=== PATIENT | male | born 1985 | race Caucasian/White ===

== ENCOUNTER 2017-02-26 18:45 | Emergency (ER) | payer OTHER ==
--- NOTE | 2017-02-26 19:18 | ED CLINICAL REPORT ---
Clinical Report - Physicians/Mid Levels [facility] [address] [place] [address] 02/26/2017 18:45 Patient: VANE MAK Time Seen: 18:51. Arrived- By private vehicle. Historian- patient. HISTORY OF PRESENT ILLNESS Chief Complaint: LESION and TENDER AREA. This started today about 1 week ago and is still present. It was gradual in onset and has been waxing/waning. It is described as painful. It has been located on the right foot. No cause has been identified. No recent medication or insect bite. (His SO thinks the lesion may be from his boots rubbing on his foot / ankle. He cannot remember a specific injury / foreign body). Similar symptoms previously: None. Recent medical care: Not recently seen/assessed. REVIEW OF SYSTEMS No fever, sore throat, cough, difficulty breathing or hoarseness. No headache, chest pain, abdominal pain, diarrhea or difficulty with urination. No vomiting. PAST HISTORY See nurses notes. Tetanus immunization status is up-to-date. Chronic back pain. Surgeries: No history of previous surgery. Additional Surgeries: no known surgeries. Medications: None. Allergies: No Known Drug Allergy. SOCIAL HISTORY Never smoker. History of chewing tobacco use. No alcohol use or drug use. ADDITIONAL NOTES The nursing notes have been reviewed. PHYSICAL EXAM Vital Signs: 02/26/2017 18:51 BP: 116/68. HR: 74. RR: 18. O2 saturation: 99%. Temp: 98.4 F. Pain level now: 6/10. Appearance: Alert. Oriented X3. No acute distress. Eyes: Conjunctivae and eyelids normal. ENT: Nose normal. Neck: Neck supple. CVS: Normal heart rate and rhythm. Heart sounds normal. Respiratory: No respiratory distress. Breath sounds normal. Chest nontender. Abdomen: Nontender. Skin: Skin warm and dry. Single small tender indurated area with fluctuance to right ankle and right foot (anterior, medial aspect with small lesion). No pointing, drainage or cellulitis. Extremities: No upper extremity edema. No calf tenderness. Right foot: mild erythema and swelling and moderate tenderness located in the proximal aspect of the foot. Neurovascular intact distally. No ecchymosis, puncture wound, foreign body or deformity. Extremities exhibit normal ROM. Compartment soft. Neuro: Oriented X 3. No motor deficit. No sensory deficit. LABS, X-RAYS, AND EKG Rt Foot X-ray: No fracture. Normal alignment. No bony lesion, air in the soft tissue or foreign body. Soft tissues normal. Joint spaces normal. Views: AP, lateral and oblique. Technique: good. The X-rays were interpreted contemporaneously by me. The X-rays were discussed with the radiologist (via PACS report). Bedside Tests: Glucose normal - 72 (performed at bedside). Pulse Oximetry: 02/26/2017 18:51 O2 saturation: 99%. (FIO2 - room air). Interpretation: normal. PROGRESS AND PROCEDURES Incision & Drainage of Abscess: Time-out completed immediately before the procedure. The abscess is located in the right ankle and foot. The risks of the procedure, benefits and alternatives were explained. Consent was obtained. Local anesthesia provided using 0.50% Marcaine no epi. Skin cleansed with Betadine. The abscess was incised with a #11 surgical blade. A small amount of pus was drained. Cavity was irrigated with saline and packed with gauze. Sample obtained for cultures and gram stain. A dressing was applied. Estimated blood loss: 2 mL. Course of Care: Bactrim DS 1 tab PO. Keflex 500 mg PO given. Patient is stable. Physical exam findings are improved. Symptoms better. No systemic symptoms. Only small amount of pus drainage with I&D. I will cover broadly with strep and MRSA coverage until cultures return. May be mostly inflammatory reaction. He will need close out pt follow up. Patient/family counseled. Old ED records reviewed. Disposition: Discharged. Condition: good and stable and improved. CLINICAL IMPRESSION Single superficial abscess to the left foot with incision and drainage. INSTRUCTIONS Protect wound and keep wound area clean. (You may leave the packing in place for 2 days). Change dressing daily. Apply neosporin twice daily. Do not work for three days. Drink plenty of fluids. Warnings: Further evaluation is necessary in order to conduct further tests. It is very important to follow up with a physician. CONTROLLED SUBSTANCE WARNINGS. GENERAL WARNINGS: Return or contact your physician immediately if your condition worsens or changes unexpectedly, if not improving as expected, or if other problems arise. Prescription Medications: Hydrocodone/APAP 5mg / 325mg: take 1 orally every 8 hours as needed for pain. Dispense five (5). No refill. Bactrim DS 800 mg / 160 mg: take 1 tablet orally every 12 hours for 7 days. No refill. Substitution is permissible. Keflex 500 mg: take 1 capsule orally every 6 hours for 7 days. No refill. Substitution is permissible. OTC Medications: Acetaminophen (available over the counter): take according to label instructions. Motrin (available over the counter): take according to label instructions. Follow-up with: Cricket Tanner DPM, Podiatry, , [address] [place] [address] [address], [place] [address]; [facility], , , [facility], [address] [place] [address] [address], [place] [address] Follow up in about two days. Call for the next available appointment. Follow-up with: Elmer Cason DPM, Podiatry, , [facility], [address] [place] [address], [address], [place] [address] Follow up in about two days. Call for the next available appointment. (Electronically signed by Ravi Gibson DO 02/26/2017 22:09)
--- NOTE | 2017-02-26 19:18 | ED CLINICAL REPORT ---
Clinical Report - Physicians/Mid Levels [facility] [address] [place] [address] 02/26/2017 18:45 Patient: VANE MAK Time Seen: 18:51. Arrived- By private vehicle. Historian- patient. HISTORY OF PRESENT ILLNESS Chief Complaint: LESION and TENDER AREA. This started today about 1 week ago and is still present. It was gradual in onset and has been waxing/waning. It is described as painful. It has been located on the right foot. No cause has been identified. No recent medication or insect bite. (His SO thinks the lesion may be from his boots rubbing on his foot / ankle. He cannot remember a specific injury / foreign body). Similar symptoms previously: None. Recent medical care: Not recently seen/assessed. REVIEW OF SYSTEMS No fever, sore throat, cough, difficulty breathing or hoarseness. No headache, chest pain, abdominal pain, diarrhea or difficulty with urination. No vomiting. PAST HISTORY See nurses notes. Tetanus immunization status is up-to-date. Chronic back pain. Surgeries: No history of previous surgery. Additional Surgeries: no known surgeries. Medications: None. Allergies: No Known Drug Allergy. SOCIAL HISTORY Never smoker. History of chewing tobacco use. No alcohol use or drug use. ADDITIONAL NOTES The nursing notes have been reviewed. PHYSICAL EXAM Vital Signs: 02/26/2017 18:51 BP: 116/68. HR: 74. RR: 18. O2 saturation: 99%. Temp: 98.4 F. Pain level now: 6/10. Appearance: Alert. Oriented X3. No acute distress. Eyes: Conjunctivae and eyelids normal. ENT: Nose normal. Neck: Neck supple. CVS: Normal heart rate and rhythm. Heart sounds normal. Respiratory: No respiratory distress. Breath sounds normal. Chest nontender. Abdomen: Nontender. Skin: Skin warm and dry. Single small tender indurated area with fluctuance to right ankle and right foot (anterior, medial aspect with small lesion). No pointing, drainage or cellulitis. Extremities: No upper extremity edema. No calf tenderness. Right foot: mild erythema and swelling and moderate tenderness located in the proximal aspect of the foot. Neurovascular intact distally. No ecchymosis, puncture wound, foreign body or deformity. Extremities exhibit normal ROM. Compartment soft. Neuro: Oriented X 3. No motor deficit. No sensory deficit. LABS, X-RAYS, AND EKG Rt Foot X-ray: No fracture. Normal alignment. No bony lesion, air in the soft tissue or foreign body. Soft tissues normal. Joint spaces normal. Views: AP, lateral and oblique. Technique: good. The X-rays were interpreted contemporaneously by me. The X-rays were discussed with the radiologist (via PACS report). Bedside Tests: Glucose normal - 72 (performed at bedside). Pulse Oximetry: 02/26/2017 18:51 O2 saturation: 99%. (FIO2 - room air). Interpretation: normal. PROGRESS AND PROCEDURES Incision & Drainage of Abscess: Time-out completed immediately before the procedure. The abscess is located in the right ankle and foot. The risks of the procedure, benefits and alternatives were explained. Consent was obtained. Local anesthesia provided using 0.50% Marcaine no epi. Skin cleansed with Betadine. The abscess was incised with a #11 surgical blade. A small amount of pus was drained. Cavity was irrigated with saline and packed with gauze. Sample obtained for cultures and gram stain. A dressing was applied. Estimated blood loss: 2 mL. Course of Care: Bactrim DS 1 tab PO. Keflex 500 mg PO given. Patient is stable. Physical exam findings are improved. Symptoms better. No systemic symptoms. Only small amount of pus drainage with I&D. I will cover broadly with strep and MRSA coverage until cultures return. May be mostly inflammatory reaction. He will need close out pt follow up. Patient/family counseled. Old ED records reviewed. Disposition: Discharged. Condition: good and stable and improved. CLINICAL IMPRESSION Single superficial abscess to the left foot with incision and drainage. INSTRUCTIONS Protect wound and keep wound area clean. (You may leave the packing in place for 2 days). Change dressing daily. Apply neosporin twice daily. Do not work for three days. Drink plenty of fluids. Warnings: Further evaluation is necessary in order to conduct further tests. It is very important to follow up with a physician. CONTROLLED SUBSTANCE WARNINGS. GENERAL WARNINGS: Return or contact your physician immediately if your condition worsens or changes unexpectedly, if not improving as expected, or if other problems arise. Prescription Medications: Hydrocodone/APAP 5mg / 325mg: take 1 orally every 8 hours as needed for pain. Dispense five (5). No refill. Bactrim DS 800 mg / 160 mg: take 1 tablet orally every 12 hours for 7 days. No refill. Substitution is permissible. Keflex 500 mg: take 1 capsule orally every 6 hours for 7 days. No refill. Substitution is permissible. OTC Medications: Acetaminophen (available over the counter): take according to label instructions. Motrin (available over the counter): take according to label instructions. Follow-up with: Cricket Tanner DPM, Podiatry, , [address] [place] [address] [address], [place] [address]; [facility], , , [facility], [address] [place] [address] [address], [place] [address] Follow up in about two days. Call for the next available appointment. Follow-up with: Elmer Cason DPM, Podiatry, , [facility], [address] [place] [address], [address], [place] [address] Follow up in about two days. Call for the next available appointment. (Electronically signed by Ravi Gibson DO 02/26/2017 22:09)
--- NOTE | 2017-02-26 19:18 | ED ORDER SUMMARY ---
..... Patient: VANE MAK OrderSheet [facility] VisitID: [id number] [place] [address] 31y, M Registration Date/Time: 02/26/2017 ORDER SHEET Weight: 79.3 kg (stated) Allergies: No Known Drug Allergy GENERAL ORDERS: Foot 3V Right (infection - no known fb) Urgent (18:52 02/26/2017 [facility]) (Ack 18:54 PWeiler ER Tech1) (18:58 JBoardley R.N.) POC Glucose (18:53 02/26/2017 [facility]) (Ack 18:54 JBoardley R.N.) (18:58 JBoardley R.N.) Dress Wounds (bacitrancin and guaze) (19:17 02/26/2017 [facility]) (Ack 19:21 DDavis R.N.) (19:34 DDavis R.N.) MEDICATION ORDERS: Keflex PO 500 mg (NOW) (18:54 02/26/2017 [facility] (Ack 18:54 JBoardley R.N.) (Cancelled: Other18:55 [facility] P.A.-[facility]) Bupivacaine Injection 0.5 % (soln) (NOW, place at bedside) (19:01 02/26/2017 [facility]) (Ack 19:06 JBoardley R.N.) (19:07 JBoardley R.N.) Bactrim DS PO (Tablet 800-160 mg) 1 tab (NOW) (19:23 02/26/2017 [facility]) (19:37 DDavis R.N.) Keflex PO 500 mg (NOW) (19:24 02/26/2017 [facility]) (19:37 DDavis R.N.) IV FLUIDS: ORDER SHEET NOTES: [Electronically signed by Ismael Degroot R.N. (19:41 02/26/2017)] [Electronically signed by Ravi Gibson DO (22:09 02/26/2017)] [Electronically locked/signed by Ismael Degroot R.N. (19:41 02/26/2017)]
--- NOTE | 2017-02-26 19:18 | ED ORDER SUMMARY ---
..... Patient: VANE MAK OrderSheet [facility] VisitID: [id number] [place] [address] 31y, M Registration Date/Time: 02/26/2017 ORDER SHEET Weight: 79.3 kg (stated) Allergies: No Known Drug Allergy GENERAL ORDERS: Foot 3V Right (infection - no known fb) Urgent (18:52 02/26/2017 [facility]) (Ack 18:54 PWeiler ER Tech1) (18:58 JBoardley R.N.) POC Glucose (18:53 02/26/2017 [facility]) (Ack 18:54 JBoardley R.N.) (18:58 JBoardley R.N.) Dress Wounds (bacitrancin and guaze) (19:17 02/26/2017 [facility]) (Ack 19:21 DDavis R.N.) (19:34 DDavis R.N.) MEDICATION ORDERS: Keflex PO 500 mg (NOW) (18:54 02/26/2017 [facility]) (Ack 18:54 JBoardley R.N.) (Cancelled: Other18:55 [facility] P.A[facility]) Bupivacaine Injection 0.5 % (soln) (NOW, place at bedside) (19:01 02/26/2017 [facility]) (Ack 19:06 JBoardley R.N.) (19:07 JBoardley R.N.) Bactrim DS PO (Tablet 800-160 mg) 1 tab (NOW) (19:23 02/26/2017 [facility]) (19:37 DDavis R.N.) Keflex PO 500 mg (NOW) (19:24 02/26/2017 [facility]) (19:37 DDavis R.N.) IV FLUIDS: ORDER SHEET NOTES: [Electronically signed by Ismael Degroot R.N. (19:41 02/26/2017)] [Electronically signed by Ravi Gibson DO (22:09 02/26/2017)] [Electronically locked/signed by Ismael Degroot R.N. (19:41 02/26/2017)]
--- NOTE | 2017-02-26 19:18 | ED NURSING NOTES ---
Clinical Report - Nurses [facility] [place] [address] [place] [address] 02/26/2017 18:45 [id number] Triage time 18:51. Acuity: LEVEL 4. Chief Complaint: RIGHT LOWER EXTREMITY PAIN. Location of symptoms- (Right foot pain, redness). 18:53 02/26/17. 18:53 02/26/17. Alert. No acute distress. SEPSIS SCREEN: Sepsis Screen. Negative (no infection suspected/documented). MANE COMA SCORE: Mane Coma Scale: 15- eyes open spontaneously (4); best verbal response- oriented x 4 (5); best motor response- obeys commands (6). --18:54 Ulysses Ashton R.N. 18:51 02/26/17. BP: 116/68. HR: 74. RR: 18. O2 saturation: 99% on room air. Temp: 98.4 F (oral). Pain level now: 04/19. --18:54 Ulysses Ashton R.N. Weight: 79.3 kg stated. Height/Length: 68 inches Per Patient. BMI: 26.6. --18:51 Ulysses Ashton R.N. Medications None. --18:53 Ulysses Ashton R.N. Allergies No Known Drug Allergy. --18:53 Ulysses Ashton R.N. History Arrived by private vehicle. Historian: patient. Accompanied by family. Primary physician (NONE). 18:53 02/26/17. No injury occurred. This occurred (1 week ago). He has had trouble walking. Treatment VICE PRESIDENT OF CONSULTING SERVICES: None. PAST MEDICAL HX: Tetanus status: up-to-date. Immunizations: up-to-date. SOCIAL HX: Never smoker. History of chewing tobacco use. No alcohol use or drug use. No infectious disease exposure. ABUSE ASSESSMENT: No report of abuse. FALL RISK ASSESSMENT: Fall risk assessment completed. No fall risk identified. NUTRITIONAL RISK ASSESSMENT: The nutritional risk assessment revealed no deficiencies. FUNCTIONAL ASSESSMENT: Functional assessment: no impairments noted. LEARNING NEEDS ASSESSMENT: The learning needs assessment revealed no barriers. SKIN INTEGRITY ASSESSMENT: Skin integrity risk assessment completed. No skin integrity risk identified. --18:54 Ulysses Ashton R.N. PROBLEMS: Lumbar Strain. Tetanus Status. Immunizations. --18:53 Ulysses Ashton R.N. ADDITIONAL SURGERIES: no known surgeries. Assessment 18:53 02/26/17. --18:54 Ulysses Ashton R.N. Interventions 18:53 02/26/17. 18:53 02/26/17. ID and allergy band on patient. To treatment room. --18:54 Ulysses Ashton R.N. PHYSICAL ASSESSMENT 18:54 02/26/17. Ambulatory to room. GENERAL / NEURO / PSYCH: Oriented X 4. Alert. Appears in no acute distress. EXTREMITIES: Neuro-vascular status intact to the extremity. Right foot: tenderness and erythema. SKIN: Skin is warm and dry. --18:54 Ulysses Ashton R.N. NURSING PROGRESS NOTES 18:54 02/26/17. The plan of care for this patient has been created. Extremity elevated. Reassurance given. Call light placed in reach. Side rails up x 2. Bed placed in lowest position. Brakes of bed on. --18:54 Ulysses Ashton R.N. 18:54 02/26/17. Patient ready for evaluation- chart flagged and notification provided. --18:54 Ulysses Ashton R.N. 18:58 02/26/17. ( x-ray completed at bedside). --18:58 Ulysses Ashton R.N. 19:02 02/26/2017 Bupivacaine Injection 0.5 % given. Allergies verified and confirmed 5 rights. ( will adminster). --19:07 Ulysses Ashton R.N. 19:07 02/26/17. ( Blood Sugar 72). --19:07 Ulysses Ashton R.N. 19:08 02/26/17. Care transferred and report given. --19:08 Ulysses Ashton R.N. ( Report received from Ulysses Pulido RN.). --19:10 Ismael Degroot R.N. 19:37 02/26/2017 Bactrim DS (Sulfamethoxazole-TMP DS) PO Tablets 1 tab given. Allergies verified and confirmed 5 rights. --19:37 Ismael Degroot R.N. 19:37 02/26/2017 Keflex (Cephalexin) PO 500 mg given. Allergies verified and confirmed 5 rights. --19:37 Ismael Degroot R.N. ( 1932: Dressing and bacitracin applied to patient's abscess site (right anterior foot).). --19:38 Ismael Degroot R.N. DISPOSITION / DISCHARGE Departure time: 19:39. Condition at departure: stable. No learning barriers present. Discharge instructions provided and reviewed with the patient. Reviewed warnings. Reviewed medication(s) side effects, precautions, dosing and course information. Prescription(s) given to the patient. Treatments reviewed. Reviewed referrals for followup. Work note given. Patient and seed specialist verbalized understanding. Written instructions provided in Zambian. The patient was discharged home and accompanied by seed specialist. He left the Emergency Department ambulatory and via private vehicle. Case Finisher driving. --19:40 Ismael Degroot R.N. 19:40 02/26/17. BP: 113/77. HR: 79. RR: 18. O2 saturation: 98% on room air. Pain level now: 0/10. --19:40 Ismael Degroot R.N. Locked/Released at 02/26/2017 19:41 by Ismael Degroot R.N.
--- NOTE | 2017-02-26 19:18 | ED NURSING NOTES ---
Clinical Report - Nurses [facility] [place] [address] 02/26/2017 18:45 [id number] Triage time 18:51. Acuity: LEVEL 4. Chief Complaint: RIGHT LOWER EXTREMITY PAIN. Location of symptoms- (Right foot pain, redness). 18:53 02/26/17. 18:53 02/26/17. Alert. No acute distress. SEPSIS SCREEN: Sepsis Screen. Negative (no infection suspected/documented). MANE COMA SCORE: Mane Coma Scale: 15- eyes open spontaneously (4); best verbal response- oriented x 4 (5); best motor response- obeys commands (6). --18:54 Ulysses Ashton R.N. 18:51 02/26/17. BP: 116/68. HR: 74. RR: 18. O2 saturation: 99% on room air. Temp: 98.4 F (oral). Pain level now: 04/19. --18:54 Ulysses Ashton R.N. Weight: 79.3 kg stated. Height/Length: 68 inches Per Patient. BMI: 26.6. --18:51 Ulysses Ashton R.N. Medications None. --18:53 Ulysses Ashton R.N. Allergies No Known Drug Allergy. --18:53 Ulysses Ashton R.N. History Arrived by private vehicle. Historian: patient. Accompanied by family. Primary physician (NONE). 18:53 02/26/17. No injury occurred. This occurred (1 week ago). He has had trouble walking. Treatment MANAGED CARE DIRECTOR: None. PAST MEDICAL HX: Tetanus status: up-to-date. Immunizations: up-to-date. SOCIAL HX: Never smoker. History of chewing tobacco use. No alcohol use or drug use. No infectious disease exposure. ABUSE ASSESSMENT: No report of abuse. FALL RISK ASSESSMENT: Fall risk assessment completed. No fall risk identified. NUTRITIONAL RISK ASSESSMENT: The nutritional risk assessment revealed no deficiencies. FUNCTIONAL ASSESSMENT: Functional assessment: no impairments noted. LEARNING NEEDS ASSESSMENT: The learning needs assessment revealed no barriers. SKIN INTEGRITY ASSESSMENT: Skin integrity risk assessment completed. No skin integrity risk identified. --18:54 Ulysses Ashton R.N. PROBLEMS: Lumbar Strain. Tetanus Status. Immunizations. --18:53 Ulysses Ashton R.N. ADDITIONAL SURGERIES: no known surgeries. Assessment 18:53 02/26/17. --18:54 Ulysses Ashton R.N. Interventions 18:53 02/26/17. 18:53 02/26/17. ID and allergy band on patient. To treatment room. --18:54 Ulysses Ashton R.N. PHYSICAL ASSESSMENT 18:54 02/26/17. Ambulatory to room. GENERAL / NEURO / PSYCH: Oriented X 4. Alert. Appears in no acute distress. EXTREMITIES: Neuro-vascular status intact to the extremity. Right foot: tenderness and erythema. SKIN: Skin is warm and dry. --18:54 Ulysses Ashton R.N. NURSING PROGRESS NOTES 18:54 02/26/17. The plan of care for this patient has been created. Extremity elevated. Reassurance given. Call light placed in reach. Side rails up x 2. Bed placed in lowest position. Brakes of bed on. --18:54 Ulysses Ashton R.N. 18:54 02/26/17. Patient ready for evaluation- chart flagged and notification provided. --18:54 Ulysses Ashton R.N. 18:58 02/26/17. ( x-ray completed at bedside). --18:58 Ulysses Ashton R.N. 19:02 02/26/2017 Bupivacaine Injection 0.5 % given. Allergies verified and confirmed 5 rights. ( will adminster). --19:07 Ulysses Ashton R.N. 19:07 02/26/17. ( Blood Sugar 72). --19:07 Ulysses Ashton R.N. 19:08 02/26/17. Care transferred and report given. --19:08 Ulysses Ashton R.N. ( Report received from Ulysses Pulido RN.). --19:10 Ismael Degroot R.N. 19:37 02/26/2017 Bactrim DS (Sulfamethoxazole-TMP DS) PO Tablets 1 tab given. Allergies verified and confirmed 5 rights. --19:37 Ismael Degroot R.N. 19:37 02/26/2017 Keflex (Cephalexin) PO 500 mg given. Allergies verified and confirmed 5 rights. --19:37 Ismael Degroot R.N. ( 1932: Dressing and bacitracin applied to patient's abscess site (right anterior foot).). --19:38 Ismael Degroot R.N. DISPOSITION / DISCHARGE Departure time: 19:39. Condition at departure: stable. No learning barriers present. Discharge instructions provided and reviewed with the patient. Reviewed warnings. Reviewed medication(s) side effects, precautions, dosing and course information. Prescription(s) given to the patient. Treatments reviewed. Reviewed referrals for followup. Work note given. Patient and rental car ferry driver verbalized understanding. Written instructions provided in Dominican. The patient was discharged home and accompanied by rental car ferry driver. He left the Emergency Department ambulatory and via private vehicle. Plastic Roller driving. --19:40 Ismael Degroot R.N. 19:40 02/26/17. BP: 113/77. HR: 79. RR: 18. O2 saturation: 98% on room air. Pain level now: 0/10. --19:40 Ismael Degroot R.N. Locked/Released at 02/26/2017 19:41 by Ismael Degroot R.N.
--- NOTE | 2017-02-26 19:21 | DIAGNOSTIC IMAGING REPORT ---
PROCEDURE: XR FOOT 3 VIEWS - RIGHT INDICATION: FOREIGN BODY TECHNIQUE: Three views. COMPARISON: None. FINDINGS: There is a skin marker along the anteromedial aspect of the ankle but no evidence of radiopaque foreign body or subcutaneous air. Bones and joint spaces are normal. IMPRESSION: 1. Normal right foot.
--- NOTE | 2017-02-26 22:09 | ED MED RECONCILIATION SUMMARY ---
Patient: VANE MAK Medication Reconciliation Report [facility] VisitID: [id number] [address] [place] [address] 31y, M Registration Date/Time: 02/26/2017 Weight: 79.3 kg Height/Length: 68 in. BMI: 26.6 ALLERGIES: No Known Drug Allergy The patient's Home Medications are listed below: NONE. The source(s) of the original Home Medication information: Not obtained. The following Medications were given to the patient in the Emergency Department: Bupivacaine [Injection] Injection 0.5 %, administered: 02/26/2017 7:02:00 PM Bactrim DS [PO] PO 1 tab, administered: 02/26/2017 7:37:00 PM Keflex [PO] PO 500 mg, administered: 02/26/2017 7:37:00 PM The following Medications were prescribed to the patient: Acetaminophen (available over the counter): take according to label instructions. -- Ravi Gibson DO Motrin (available over the counter): take according to label instructions. -- aRvi Gibson DO Hydrocodone/APAP 5mg / 325mg: take 1 orally every 8 hours as needed for pain. Dispense five (5). No refill. -- Ravi Gibson DO Bactrim DS 800 mg / 160 mg: take 1 tablet orally every 12 hours for 7 days. No refill. Substitution is permissible. -- Ravi Gibson DO Keflex 500 mg: take 1 capsule orally every 6 hours for 7 days. No refill. Substitution is permissible. -- Ravi Gibson DO
--- NOTE | 2017-02-26 22:09 | ED MAR SUMMARY ---
..... Medication Administration Record [facility] [address] [place] [address] Patient: VANE MAK Visit ID: [id number] 31y, M Weight: 79.3 kg Height/Length: 68 in BMI: 26.6 ALLERGIES: No Known Drug Allergy Given 19:02 02/26/2017 Ulysses Ashton RMaria C Medication Administered: BUPIVACAINE [INJECTION], Dose: 0.5 % Injection. Medication Ordered: Bupivacaine Injection 0.5 % (soln) (NOW, place at bedside). Given 19:37 02/26/2017 Ismael Degroot R.N. Medication Administered: BACTRIM DS [PO] (SULFAMETHOXAZOLE-TMP DS), Dose: 1 tab Tablets PO. Medication Ordered: Bactrim DS PO (Tablet 800-160 mg) 1 tab (NOW). Given 19:37 02/26/2017 Ismael Degroot R.N. Medication Administered: KEFLEX [PO] (CEPHALEXIN), Dose: 500 mg PO. Medication Ordered: Keflex PO 500 mg (NOW).
--- NOTE | 2017-02-26 22:09 | ED MED RECONCILIATION SUMMARY ---
Patient: VANE MAK Medication Reconciliation Report [facility] VisitID: [id number] [address] [place] [address] 31y, M Registration Date/Time: 02/26/2017 Weight: 79.3 kg Height/Length: 68 in. BMI: 26.6 ALLERGIES: No Known Drug Allergy The patient's Home Medications are listed below: NONE. The source(s) of the original Home Medication information: Not obtained. The following Medications were given to the patient in the Emergency Department: Bupivacaine [Injection] Injection 0.5 %, administered: 02/26/2017 7:02:00 PM Bactrim DS [PO] PO 1 tab, administered: 02/26/2017 7:37:00 PM Keflex [PO] PO 500 mg, administered: 02/26/2017 7:37:00 PM The following Medications were prescribed to the patient: Acetaminophen (available over the counter): take according to label instructions. -- Ravi Gibson DO Motrin (available over the counter): take according to label instructions. -- Ravi Gibson DO Hydrocodone/APAP 5mg / 325mg: take 1 orally every 8 hours as needed for pain. Dispense five (5). No refill. -- Ravi Gibson DO Bactrim DS 800 mg / 160 mg: take 1 tablet orally every 12 hours for 7 days. No refill. Substitution is permissible. -- Ravi Gibson DO Keflex 500 mg: take 1 capsule orally every 6 hours for 7 days. No refill. Substitution is permissible. -- Ravi Gibson DO
--- NOTE | 2017-02-26 22:09 | ED MAR SUMMARY ---
..... Medication Administration Record [facility] [address] [place] [address] Patient: VANE MAK Visit ID: [id number] 31y, M Weight: 79.3 kg Height/Length: 68 in BMI: 26.6 ALLERGIES: No Known Drug Allergy Given 19:02 02/26/2017 Ulysses Ashton RMaria C Medication Administered: BUPIVACAINE [INJECTION], Dose: 0.5 % Injection. Medication Ordered: Bupivacaine Injection 0.5 % (soln) (NOW, place at bedside). Given 19:37 02/26/2017 Ismael Degroot R.N. Medication Administered: BACTRIM DS [PO] (SULFAMETHOXAZOLE-TMP DS), Dose: 1 tab Tablets PO. Medication Ordered: Bactrim DS PO (Tablet 800-160 mg) 1 tab (NOW). Given 19:37 02/26/2017 Ismael Degroot R.N. Medication Administered: KEFLEX [PO] (CEPHALEXIN), Dose: 500 mg PO. Medication Ordered: Keflex PO 500 mg (NOW).
--- NOTE | 2017-02-26 22:09 | ED DISCHARGE INSTRUCTIONS ---
Patient: VANE MAK General Instructions [facility] VisitID: [id number] [place] [address] 31y, M Registration Date/Time: 02/26/2017 Single superficial abscess to the left foot with incision and drainage. INSTRUCTIONS Protect wound and keep wound area clean. (You may leave the packing in place for 2 days). Change dressing daily. Apply neosporin twice daily. Do not work for three days. Drink plenty of fluids. Warnings: Further evaluation is necessary in order to conduct further tests. It is very important to follow up with a physician. CONTROLLED SUBSTANCE WARNINGS. GENERAL WARNINGS: Return or contact your physician immediately if your condition worsens or changes unexpectedly, if not improving as expected, or if other problems arise. Prescription Medications: Hydrocodone/APAP 5mg / 325mg: take 1 orally every 8 hours as needed for pain. Dispense five (5). No refill. Bactrim DS 800 mg / 160 mg: take 1 tablet orally every 12 hours for 7 days. No refill. Substitution is permissible. Keflex 500 mg: take 1 capsule orally every 6 hours for 7 days. No refill. Substitution is permissible. OTC Medications: Acetaminophen (available over the counter): take according to label instructions. Motrin (available over the counter): take according to label instructions. Follow-up with: Cricket Tanner DPM, Podiatry, , [address] [place] [address] [address], [place] [address]; [facility], , , [facility], [address] [place] [address] [address] [address] Follow up in about two days. Call for the next available appointment. Follow-up with: Elmer Cason DPM, Podiatry, , [facility], [address] [place] [address], [address] [address] Follow up in about two days. Call for the next available appointment. ADDITIONAL INFORMATION Abscess [Incision & Drainage] An abscess (sometimes called a boil) occurs when bacteria get trapped under the skin and begin to grow. Pus forms inside the abscess as the body responds to the bacteria. An abscess can occur with an insect bite, ingrown hair, blocked oil gland, pimple, cyst, or puncture wound. Treatment of your abscess has required an incision to drain the pus. If the abscess pocket was large, a gauze packing may have been inserted. This will need to be removed and possibly replaced on your next visit. Antibiotics are not required in the treatment of a simple abscess, unless the infection is spreading into the skin around the wound (known as cellulitis). Healing of the wound will take about one to two weeks depending on the size of the abscess. Healthy tissue will grow from the bottom and sides of the opening until it seals over. Home Care: The wound may drain for the first two days. Cover the wound with a clean dry dressing. If the dressing becomes soaked with blood or pus, change it. If a gauze packing was placed inside the abscess cavity, you may be advised to remove it yourself. You may do this in the shower. Once the packing is removed, you should wash the area in the shower or bath 3 to 4 times a day, until the skin opening has closed. If you were prescribed antibiotics, take them as directed until they are all gone. You may use acetaminophen (Tylenol) or ibuprofen (Motrin, Advil) to control pain, unless another pain medicine was prescribed. [ NOTE: If you have liver disease or ever had a stomach ulcer, talk with your doctor before using these medicines.] Follow Up with your doctor as advised by our staff. If a gauze packing was inserted in your wound, it should be removed in 1-2 days. Check your wound every day for the signs of worsening infection listed below. Get Prompt Medical Attention if any of the following occur: Increasing redness or swelling Red streaks in the skin leading away from the wound Increasing local pain or swelling Continued pus draining from the wound two days after treatment Fever of 100.4F (38C) or higher, or as directed by your healthcare provider Bandage Change If the bandage becomes wet or dirty, replace it. Otherwise, leave it in place for the first 24 hours. Then once a day: After removing the bandage, wash the area with soap and water. Use a wet cotton swab to loosen and remove any blood or crust that forms on the wound. After cleaning, apply a thin layer of antibiotic ointment or cream. Reapply the bandage. You may shower as usual after the first 24 hours. If the bandage is on an arm or leg, cover it with a plastic bag rubber banded at both ends before showering. No tub baths or swimming until the bandage is removed and the wound healed (at least 7 days). Hydrocodone Bitartrate, Acetaminophen Oral tablet What is this medicine? ACETAMINOPHEN; HYDROCODONE (a set a JOHNSON pina fen; guerrero droe KOE done) is a pain reliever. It is used to treat mild to moderate pain. How should I use this medicine? Take this medicine by mouth. Swallow it with a full glass of water. Follow the directions on the prescription label. If the medicine upsets your stomach, take the medicine with food or milk. Do not take more than you are told to take. Talk to your veneer sorter regarding the use of this medicine in children. This medicine is not approved for use in children. What side effects may I notice from receiving this medicine? Side effects that you should report to your doctor or health social worker palliative care as soon as possible: allergic reactions like skin rash, itching or hives, swelling of the face, lips, or tongue breathing problems confusion feeling faint or lightheaded, falls stomach pain yellowing of the eyes or skin Side effects that usually do not require medical attention (report to your doctor or health social worker palliative care if they continue or are bothersome): nausea, vomiting stomach upset What may interact with this medicine? alcohol antihistamines isoniazid medicines for depression, anxiety, or psychotic disturbances medicines for sleep muscle relaxants naltrexone narcotic medicines (opiates) for pain phenobarbital ritonavir tramadol What if I miss a dose? If you miss a dose, take it as soon as you can. If it is almost time for your next dose, take only that dose. Do not take double or extra doses. Where should I keep my medicine? Keep out of the reach of children. This medicine can be abused. Keep your medicine in a safe place to protect it from theft. Do not share this medicine with anyone. Selling or giving away this medicine is dangerous and against the law. Store at room temperature between 15 and 30 degrees C (59 and 86 degrees F). Protect from light. Keep container tightly closed. Throw away any unused medicine after the expiration date. Discard unused medicine and used packaging carefully. Pets and children can be harmed if they find used or lost packages. What should I tell my health care provider before I take this medicine? They need to know if you have any of these conditions: brain tumor Crohn's disease, inflammatory bowel disease, or ulcerative colitis drink more than 3 alcohol-containing drinks per day drug abuse or addiction head injury heart or circulation problems kidney disease or problems going to the bathroom liver disease lung disease, asthma, or breathing problems an unusual or allergic reaction to acetaminophen, hydrocodone, other opioid analgesics, other medicines, foods, dyes, or preservatives or trying to get breast-feeding What should I watch for while using this medicine? Tell your doctor or health social worker palliative care if your pain does not go away, if it gets worse, or if you have new or a different type of pain. You may develop tolerance to the medicine. Tolerance means that you will need a higher dose of the medicine for pain relief. Tolerance is normal and is expected if you take the medicine for a long time. Do not suddenly stop taking your medicine because you may develop a severe reaction. Your body becomes used to the medicine. This does NOT mean you are addicted. Addiction is a behavior related to getting and using a drug for a non-medical reason. If you have pain, you have a medical reason to take pain medicine. Your doctor will tell you how much medicine to take. If your doctor wants you to stop the medicine, the dose will be slowly lowered over time to avoid any side effects. You may get drowsy or dizzy when you first start taking the medicine or change doses. Do not drive, use machinery, or do anything that may be dangerous until you know how the medicine affects you. Stand or sit up slowly. There are different types of narcotic medicines (opiates) for pain. If you take more than one type at the same time, you may have more side effects. Give your health care provider a list of all medicines you use. Your doctor will tell you how much medicine to take. Do not take more medicine than directed. Call emergency for help if you have problems breathing. The medicine will cause constipation. Try to have a bowel movement at least every 2 to 3 days. If you do not have a bowel movement for 3 days, call your doctor or health social worker palliative care. Too much acetaminophen can be very dangerous. Do not take Tylenol (acetaminophen) or medicines that contain acetaminophen with this medicine. Many non-prescription medicines contain acetaminophen. Always read the labels carefully. Sulfamethoxazole, Trimethoprim Oral tablet What is this medicine? SULFAMETHOXAZOLE; TRIMETHOPRIM or SMX-TMP (suhl fuh meth OK elza zohl; trye METH oh prim) is a combination of a sulfonamide antibiotic and a second antibiotic, trimethoprim. It is used to treat or prevent certain kinds of bacterial infections. It will not work for colds, flu, or other viral infections. How should I use this medicine? Take this medicine by mouth with a full glass of water. Follow the directions on the prescription label. Take your medicine at regular intervals. Do not take it more often than directed. Do not skip doses or stop your medicine early. Talk to your veneer sorter regarding the use of this medicine in children. Special care may be needed. This medicine has been used in children as young as 2 months of age. What side effects may I notice from receiving this medicine? Side effects that you should report to your doctor or health social worker palliative care as soon as possible: allergic reactions like skin rash or hives, swelling of the face, lips, or tongue breathing problems fever or chills, sore throat irregular heartbeat, chest pain joint or muscle pain pain or difficulty passing urine red pinpoint spots on skin redness, blistering, peeling or loosening of the skin, including inside the mouth unusual bleeding or bruising unusually weak or tired yellowing of the eyes or skin Side effects that usually do not require medical attention (report to your doctor or health social worker palliative care if they continue or are bothersome): diarrhea dizziness headache loss of appetite nausea, vomiting nervousness What may interact with this medicine? Do not take this medicine with any of the following medications: aminobenzoate potassium dofetilide metronidazole This medicine may also interact with the following medications: ADRIANA inhibitors like benazepril, enalapril, lisinopril, and ramipril cyclosporine digoxin diuretics indomethacin medicines for diabetes methenamine methotrexate phenytoin potassium supplements pyrimethamine sulfinpyrazone tricyclic antidepressants warfarin What if I miss a dose? If you miss a dose, take it as soon as you can. If it is almost time for your next dose, take only that dose. Do not take double or extra doses. Where should I keep my medicine? Keep out of the reach of children. Store at room temperature between 20 to 25 degrees C (68 to 77 degrees F). Protect from light. Throw away any unused medicine after the expiration date. What should I tell my health care provider before I take this medicine? They need to know if you have any of these conditions: anemia asthma being treated with anticonvulsants if you frequently drink alcohol containing drinks kidney disease liver disease low level of folic acid or [id number] dehydrogenase poor nutrition or malabsorption porphyria severe allergies thyroid disorder an unusual or allergic reaction to sulfamethoxazole, trimethoprim, sulfa drugs, other medicines, foods, dyes, or preservatives or trying to get breast-feeding What should I watch for while using this medicine? Tell your doctor or health social worker palliative care if your symptoms do not improve. Drink several glasses of water a day to reduce the risk of kidney problems. Do not treat diarrhea with over the counter products. Contact your doctor if you have diarrhea that lasts more than 2 days or if it is severe and watery. This medicine can make you more sensitive to the sun. Keep out of the sun. If you cannot avoid being in the sun, wear protective clothing and use a sunscreen. Do not use sun lamps or tanning beds/booths. Cephalexin Monohydrate Oral tablet What is this medicine? CEPHALEXIN (sef a LOLLY in) is a cephalosporin antibiotic. It is used to treat certain kinds of bacterial infections It will not work for colds, flu, or other viral infections. How should I use this medicine? Take this medicine by mouth with a full glass of water. Follow the directions on the prescription label. This medicine can be taken with or without food. Take your medicine at regular intervals. Do not take your medicine more often than directed. Take all of your medicine as directed even if you think you are better. Do not skip doses or stop your medicine early. Talk to your veneer sorter regarding the use of this medicine in children. While this drug may be prescribed for selected conditions, precautions do apply. What side effects may I notice from receiving this medicine? Side effects that you should report to your doctor or health social worker palliative care as soon as possible: allergic reactions like skin rash, itching or hives, swelling of the face, lips, or tongue breathing problems pain or trouble passing urine redness, blistering, peeling or loosening of the skin, including inside the mouth severe or watery diarrhea unusually weak or tired yellowing of the eyes, skin Side effects that usually do not require medical attention (report to your doctor or health social worker palliative care if they continue or are bothersome): gas or heartburn genital or anal irritation headache joint or muscle pain nausea, vomiting What may interact with this medicine? probenecid some other antibiotics What if I miss a dose? If you miss a dose, take it as soon as you can. If it is almost time for your next dose, take only that dose. Do not take double or extra doses. There should be at least 4 to 6 hours between doses. Where should I keep my medicine? Keep out of the reach of children. Store at room temperature between 59 and 86 degrees F (15 and 30 degrees C). Throw away any unused medicine after the expiration date. What should I tell my health care provider before I take this medicine? They need to know if you have any of these conditions: kidney disease stomach or intestine problems, especially colitis an unusual or allergic reaction to cephalexin, other cephalosporins, penicillins, other antibiotics, medicines, foods, dyes or preservatives or trying to get breast-feeding What should I watch for while using this medicine? Tell your doctor or health social worker palliative care if your symptoms do not begin to improve in a few days. Do not treat diarrhea with over the counter products. Contact your doctor if you have diarrhea that lasts more than 2 days or if it is severe and watery. If you have diabetes, you may get a false-positive result for sugar in your urine. Check with your doctor or health social worker palliative care. Acetaminophen Oral tablet What is this medicine? ACETAMINOPHEN (a set a JOHNSON pina fen) is a pain reliever. It is used to treat mild pain and fever. How should I use this medicine? Take this medicine by mouth with a glass of water. Follow the directions on the package or prescription label. Take your medicine at regular intervals. Do not take your medicine more often than directed. Talk to your veneer sorter regarding the use of this medicine in children. While this drug may be prescribed for children as young as 6 years of age for selected conditions, precautions do apply. What side effects may I notice from receiving this medicine? Side effects that you should report to your doctor or health social worker palliative care as soon as possible: allergic reactions like skin rash, itching or hives, swelling of the face, lips, or tongue breathing problems fever or sore throat redness, blistering, peeling or loosening of the skin, including inside the mouth trouble passing urine or change in the amount of urine unusual bleeding or bruising unusually weak or tired yellowing of the eyes or skin Side effects that usually do not require medical attention (report to your doctor or health social worker palliative care if they continue or are bothersome): headache nausea, stomach upset What may interact with this medicine? alcohol imatinib isoniazid other medicines with acetaminophen What if I miss a dose? If you miss a dose, take it as soon as you can. If it is almost time for your next dose, take only that dose. Do not take double or extra doses. Where should I keep my medicine? Keep out of reach of children. Store at room temperature between 20 and 25 degrees C (68 and 77 degrees F). Protect from moisture and heat. Throw away any unused medicine after the expiration date. What should I tell my health care provider before I take this medicine? They need to know if you have any of these conditions: if you frequently drink alcohol containing drinks liver disease an unusual or allergic reaction to acetaminophen, other medicines, foods, dyes or preservatives or trying to get breast-feeding What should I watch for while using this medicine? Tell your doctor or health social worker palliative care if the pain lasts more than 10 days (5 days for children), if it gets worse, or if there is a new or different kind of pain. Also, check with your doctor if a fever lasts for more than 3 days. Do not take other medicines that contain acetaminophen with this medicine. Always read labels carefully. If you have questions, ask your doctor or pharmacist. If you take too much acetaminophen get medical help right away. Too much acetaminophen can be very dangerous and cause liver damage. Even if you do not have symptoms, it is important to get help right away. Ibuprofen Oral tablet What is this medicine? IBUPROFEN (eye BYOO proe fen) is a non-steroidal anti-inflammatory drug (NSAID). It is used for dental pain, fever, headaches or migraines, osteoarthritis, rheumatoid arthritis, or painful monthly periods. It can also relieve minor aches and pains caused by a cold, flu, or sore throat. How should I use this medicine? Take this medicine by mouth with a glass of water. Follow the directions on the prescription label. Take this medicine with food if your stomach gets upset. Try to not lie down for at least 10 minutes after you take the medicine. Take your medicine at regular intervals. Do not take your medicine more often than directed. A special MedGuide will be given to you by the pharmacist with each prescription and refill. Be sure to read this information carefully each time. Talk to your veneer sorter regarding the use of this medicine in children. Special care may be needed. What side effects may I notice from receiving this medicine? Side effects that you should report to your doctor or health social worker palliative care as soon as possible: allergic reactions like skin rash, itching or hives, swelling of the face, lips, or tongue black or bloody stools, blood in the urine or in vomit breathing problems changes in vision chest pain general ill feeling or flu-like symptoms nausea or vomiting redness, blistering, peeling or loosening of the skin, including inside the mouth slurred speech or weakness on one side of the body stomach pain unexplained weight gain or swelling unusually weak or tired yellowing of eyes or skin Side effects that usually do not require medical attention (report to your doctor or health social worker palliative care if they continue or are bothersome): constipation or diarrhea dizziness gas or heartburn stomach upset What may interact with this medicine? Do not take this medicine with any of the following medications: cidofovir ketorolac methotrexate pemetrexed This medicine may also interact with the following medications: alcohol aspirin diuretics lithium other drugs for inflammation like prednisone warfarin What if I miss a dose? If you miss a dose, take it as soon as you can. If it is almost time for your next dose, take only that dose. Do not take double or extra doses. Where should I keep my medicine? Keep out of the reach of children. Store at room temperature between 15 and 30 degrees C (59 and 86 degrees F). Keep container tightly closed. Throw away any unused medicine after the expiration date. What should I tell my health care provider before I take this medicine? They need to know if you have any of these conditions: asthma cigarette smoker drink more than 3 alcohol containing drinks a day heart disease or circulation problems such as heart failure or leg edema (fluid retention) high blood pressure kidney disease liver disease stomach bleeding or ulcers an unusual or allergic reaction to ibuprofen, aspirin, other NSAIDS, other medicines, foods, dyes, or preservatives or trying to get breast-feeding What should I watch for while using this medicine? Tell your doctor or healthcare professional if your symptoms do not start to get better or if they get worse. This medicine does not prevent heart attack or stroke. In fact, this medicine may increase the chance of a heart attack or stroke. The chance may increase with longer use of this medicine and in people who have heart disease. If you take aspirin to prevent heart attack or stroke, talk with your doctor or health social worker palliative care. Do not take other medicines that contain aspirin, ibuprofen, or naproxen with this medicine. Side effects such as stomach upset, nausea, or ulcers may be more likely to occur. Many medicines available without a prescription should not be taken with this medicine. This medicine can cause ulcers and bleeding in the stomach and intestines at any time during treatment. Ulcers and bleeding can happen without warning symptoms and can cause . To reduce your risk, do not smoke cigarettes or drink alcohol while you are taking this medicine. You may get drowsy or dizzy. Do not drive, use machinery, or do anything that needs mental alertness until you know how this medicine affects you. Do not stand or sit up quickly, especially if you are an older patient. This reduces the risk of dizzy or fainting spells. This medicine can cause you to bleed more easily. Try to avoid damage to your teeth and gums when you brush or floss your teeth. You have been given the following additional information: Abscess, Incision And Drainage Dressing Change Hydrocodone Bitartrate, Acetaminophen Oral tablet Sulfamethoxazole, Trimethoprim Oral tablet Cephalexin Monohydrate Oral tablet Acetaminophen Oral tablet Ibuprofen Oral tablet Do not work for three days. (Electronically signed by Ravi Gibson DO 02/26/2017 22:09)
--- NOTE | 2017-02-26 22:09 | ED DISCHARGE INSTRUCTIONS ---
Patient: VANE MAK General Instructions [facility] VisitID: [id number] [place] [address] 31y, M Registration Date/Time: 02/26/2017 Single superficial abscess to the left foot with incision and drainage. INSTRUCTIONS Protect wound and keep wound area clean. (You may leave the packing in place for 2 days). Change dressing daily. Apply neosporin twice daily. Do not work for three days. Drink plenty of fluids. Warnings: Further evaluation is necessary in order to conduct further tests. It is very important to follow up with a physician. CONTROLLED SUBSTANCE WARNINGS. GENERAL WARNINGS: Return or contact your physician immediately if your condition worsens or changes unexpectedly, if not improving as expected, or if other problems arise. Prescription Medications: Hydrocodone/APAP 5mg / 325mg: take 1 orally every 8 hours as needed for pain. Dispense five (5). No refill. Bactrim DS 800 mg / 160 mg: take 1 tablet orally every 12 hours for 7 days. No refill. Substitution is permissible. Keflex 500 mg: take 1 capsule orally every 6 hours for 7 days. No refill. Substitution is permissible. OTC Medications: Acetaminophen (available over the counter): take according to label instructions. Motrin (available over the counter): take according to label instructions. Follow-up with: Cricket Tanner DPM, Podiatry, , [address] [place] [address] [address], [place] [address]; [facility], , , [facility], [address] [place] [address] [address] [address] Follow up in about two days. Call for the next available appointment. Follow-up with: Elmer Cason DPM, Podiatry, , [facility], [address] [place] [address], [address] [address] Follow up in about two days. Call for the next available appointment. ADDITIONAL INFORMATION Abscess [Incision & Drainage] An abscess (sometimes called a boil) occurs when bacteria get trapped under the skin and begin to grow. Pus forms inside the abscess as the body responds to the bacteria. An abscess can occur with an insect bite, ingrown hair, blocked oil gland, pimple, cyst, or puncture wound. Treatment of your abscess has required an incision to drain the pus. If the abscess pocket was large, a gauze packing may have been inserted. This will need to be removed and possibly replaced on your next visit. Antibiotics are not required in the treatment of a simple abscess, unless the infection is spreading into the skin around the wound (known as cellulitis). Healing of the wound will take about one to two weeks depending on the size of the abscess. Healthy tissue will grow from the bottom and sides of the opening until it seals over. Home Care: The wound may drain for the first two days. Cover the wound with a clean dry dressing. If the dressing becomes soaked with blood or pus, change it. If a gauze packing was placed inside the abscess cavity, you may be advised to remove it yourself. You may do this in the shower. Once the packing is removed, you should wash the area in the shower or bath 3 to 4 times a day, until the skin opening has closed. If you were prescribed antibiotics, take them as directed until they are all gone. You may use acetaminophen (Tylenol) or ibuprofen (Motrin, Advil) to control pain, unless another pain medicine was prescribed. [ NOTE: If you have liver disease or ever had a stomach ulcer, talk with your doctor before using these medicines.] Follow Up with your doctor as advised by our staff. If a gauze packing was inserted in your wound, it should be removed in 1-2 days. Check your wound every day for the signs of worsening infection listed below. Get Prompt Medical Attention if any of the following occur: Increasing redness or swelling Red streaks in the skin leading away from the wound Increasing local pain or swelling Continued pus draining from the wound two days after treatment Fever of 100.4F (38C) or higher, or as directed by your healthcare provider Bandage Change If the bandage becomes wet or dirty, replace it. Otherwise, leave it in place for the first 24 hours. Then once a day: After removing the bandage, wash the area with soap and water. Use a wet cotton swab to loosen and remove any blood or crust that forms on the wound. After cleaning, apply a thin layer of antibiotic ointment or cream. Reapply the bandage. You may shower as usual after the first 24 hours. If the bandage is on an arm or leg, cover it with a plastic bag rubber banded at both ends before showering. No tub baths or swimming until the bandage is removed and the wound healed (at least 7 days). Hydrocodone Bitartrate, Acetaminophen Oral tablet What is this medicine? ACETAMINOPHEN; HYDROCODONE (a set a JOHNSON pina fen; guerreor droe KOE done) is a pain reliever. It is used to treat mild to moderate pain. How should I use this medicine? Take this medicine by mouth. Swallow it with a full glass of water. Follow the directions on the prescription label. If the medicine upsets your stomach, take the medicine with food or milk. Do not take more than you are told to take. Talk to your director of finance regarding the use of this medicine in children. This medicine is not approved for use in children. What side effects may I notice from receiving this medicine? Side effects that you should report to your doctor or health rn care transition as soon as possible: allergic reactions like skin rash, itching or hives, swelling of the face, lips, or tongue breathing problems confusion feeling faint or lightheaded, falls stomach pain yellowing of the eyes or skin Side effects that usually do not require medical attention (report to your doctor or health rn care transition if they continue or are bothersome): nausea, vomiting stomach upset What may interact with this medicine? alcohol antihistamines isoniazid medicines for depression, anxiety, or psychotic disturbances medicines for sleep muscle relaxants naltrexone narcotic medicines (opiates) for pain phenobarbital ritonavir tramadol What if I miss a dose? If you miss a dose, take it as soon as you can. If it is almost time for your next dose, take only that dose. Do not take double or extra doses. Where should I keep my medicine? Keep out of the reach of children. This medicine can be abused. Keep your medicine in a safe place to protect it from theft. Do not share this medicine with anyone. Selling or giving away this medicine is dangerous and against the law. Store at room temperature between 15 and 30 degrees C (59 and 86 degrees F). Protect from light. Keep container tightly closed. Throw away any unused medicine after the expiration date. Discard unused medicine and used packaging carefully. Pets and children can be harmed if they find used or lost packages. What should I tell my health care provider before I take this medicine? They need to know if you have any of these conditions: brain tumor Crohn's disease, inflammatory bowel disease, or ulcerative colitis drink more than 3 alcohol-containing drinks per day drug abuse or addiction head injury heart or circulation problems kidney disease or problems going to the bathroom liver disease lung disease, asthma, or breathing problems an unusual or allergic reaction to acetaminophen, hydrocodone, other opioid analgesics, other medicines, foods, dyes, or preservatives or trying to get breast-feeding What should I watch for while using this medicine? Tell your doctor or health rn care transition if your pain does not go away, if it gets worse, or if you have new or a different type of pain. You may develop tolerance to the medicine. Tolerance means that you will need a higher dose of the medicine for pain relief. Tolerance is normal and is expected if you take the medicine for a long time. Do not suddenly stop taking your medicine because you may develop a severe reaction. Your body becomes used to the medicine. This does NOT mean you are addicted. Addiction is a behavior related to getting and using a drug for a non-medical reason. If you have pain, you have a medical reason to take pain medicine. Your doctor will tell you how much medicine to take. If your doctor wants you to stop the medicine, the dose will be slowly lowered over time to avoid any side effects. You may get drowsy or dizzy when you first start taking the medicine or change doses. Do not drive, use machinery, or do anything that may be dangerous until you know how the medicine affects you. Stand or sit up slowly. There are different types of narcotic medicines (opiates) for pain. If you take more than one type at the same time, you may have more side effects. Give your health care provider a list of all medicines you use. Your doctor will tell you how much medicine to take. Do not take more medicine than directed. Call emergency for help if you have problems breathing. The medicine will cause constipation. Try to have a bowel movement at least every 2 to 3 days. If you do not have a bowel movement for 3 days, call your doctor or health rn care transition. Too much acetaminophen can be very dangerous. Do not take Tylenol (acetaminophen) or medicines that contain acetaminophen with this medicine. Many non-prescription medicines contain acetaminophen. Always read the labels carefully. Sulfamethoxazole, Trimethoprim Oral tablet What is this medicine? SULFAMETHOXAZOLE; TRIMETHOPRIM or SMX-TMP (suhl fuh meth OK elza zohl; trye METH oh prim) is a combination of a sulfonamide antibiotic and a second antibiotic, trimethoprim. It is used to treat or prevent certain kinds of bacterial infections. It will not work for colds, flu, or other viral infections. How should I use this medicine? Take this medicine by mouth with a full glass of water. Follow the directions on the prescription label. Take your medicine at regular intervals. Do not take it more often than directed. Do not skip doses or stop your medicine early. Talk to your director of finance regarding the use of this medicine in children. Special care may be needed. This medicine has been used in children as young as 2 months of age. What side effects may I notice from receiving this medicine? Side effects that you should report to your doctor or health rn care transition as soon as possible: allergic reactions like skin rash or hives, swelling of the face, lips, or tongue breathing problems fever or chills, sore throat irregular heartbeat, chest pain joint or muscle pain pain or difficulty passing urine red pinpoint spots on skin redness, blistering, peeling or loosening of the skin, including inside the mouth unusual bleeding or bruising unusually weak or tired yellowing of the eyes or skin Side effects that usually do not require medical attention (report to your doctor or health rn care transition if they continue or are bothersome): diarrhea dizziness headache loss of appetite nausea, vomiting nervousness What may interact with this medicine? Do not take this medicine with any of the following medications: aminobenzoate potassium dofetilide metronidazole This medicine may also interact with the following medications: ADRIANA inhibitors like benazepril, enalapril, lisinopril, and ramipril cyclosporine digoxin diuretics indomethacin medicines for diabetes methenamine methotrexate phenytoin potassium supplements pyrimethamine sulfinpyrazone tricyclic antidepressants warfarin What if I miss a dose? If you miss a dose, take it as soon as you can. If it is almost time for your next dose, take only that dose. Do not take double or extra doses. Where should I keep my medicine? Keep out of the reach of children. Store at room temperature between 20 to 25 degrees C (68 to 77 degrees F). Protect from light. Throw away any unused medicine after the expiration date. What should I tell my health care provider before I take this medicine? They need to know if you have any of these conditions: anemia asthma being treated with anticonvulsants if you frequently drink alcohol containing drinks kidney disease liver disease low level of folic acid or [id number] dehydrogenase poor nutrition or malabsorption porphyria severe allergies thyroid disorder an unusual or allergic reaction to sulfamethoxazole, trimethoprim, sulfa drugs, other medicines, foods, dyes, or preservatives or trying to get breast-feeding What should I watch for while using this medicine? Tell your doctor or health rn care transition if your symptoms do not improve. Drink several glasses of water a day to reduce the risk of kidney problems. Do not treat diarrhea with over the counter products. Contact your doctor if you have diarrhea that lasts more than 2 days or if it is severe and watery. This medicine can make you more sensitive to the sun. Keep out of the sun. If you cannot avoid being in the sun, wear protective clothing and use a sunscreen. Do not use sun lamps or tanning beds/booths. Cephalexin Monohydrate Oral tablet What is this medicine? CEPHALEXIN (sef a LOLLY in) is a cephalosporin antibiotic. It is used to treat certain kinds of bacterial infections It will not work for colds, flu, or other viral infections. How should I use this medicine? Take this medicine by mouth with a full glass of water. Follow the directions on the prescription label. This medicine can be taken with or without food. Take your medicine at regular intervals. Do not take your medicine more often than directed. Take all of your medicine as directed even if you think you are better. Do not skip doses or stop your medicine early. Talk to your director of finance regarding the use of this medicine in children. While this drug may be prescribed for selected conditions, precautions do apply. What side effects may I notice from receiving this medicine? Side effects that you should report to your doctor or health rn care transition as soon as possible: allergic reactions like skin rash, itching or hives, swelling of the face, lips, or tongue breathing problems pain or trouble passing urine redness, blistering, peeling or loosening of the skin, including inside the mouth severe or watery diarrhea unusually weak or tired yellowing of the eyes, skin Side effects that usually do not require medical attention (report to your doctor or health rn care transition if they continue or are bothersome): gas or heartburn genital or anal irritation headache joint or muscle pain nausea, vomiting What may interact with this medicine? probenecid some other antibiotics What if I miss a dose? If you miss a dose, take it as soon as you can. If it is almost time for your next dose, take only that dose. Do not take double or extra doses. There should be at least 4 to 6 hours between doses. Where should I keep my medicine? Keep out of the reach of children. Store at room temperature between 59 and 86 degrees F (15 and 30 degrees C). Throw away any unused medicine after the expiration date. What should I tell my health care provider before I take this medicine? They need to know if you have any of these conditions: kidney disease stomach or intestine problems, especially colitis an unusual or allergic reaction to cephalexin, other cephalosporins, penicillins, other antibiotics, medicines, foods, dyes or preservatives or trying to get breast-feeding What should I watch for while using this medicine? Tell your doctor or health rn care transition if your symptoms do not begin to improve in a few days. Do not treat diarrhea with over the counter products. Contact your doctor if you have diarrhea that lasts more than 2 days or if it is severe and watery. If you have diabetes, you may get a false-positive result for sugar in your urine. Check with your doctor or health rn care transition. Acetaminophen Oral tablet What is this medicine? ACETAMINOPHEN (a set a JOHNSON pina fen) is a pain reliever. It is used to treat mild pain and fever. How should I use this medicine? Take this medicine by mouth with a glass of water. Follow the directions on the package or prescription label. Take your medicine at regular intervals. Do not take your medicine more often than directed. Talk to your director of finance regarding the use of this medicine in children. While this drug may be prescribed for children as young as 6 years of age for selected conditions, precautions do apply. What side effects may I notice from receiving this medicine? Side effects that you should report to your doctor or health rn care transition as soon as possible: allergic reactions like skin rash, itching or hives, swelling of the face, lips, or tongue breathing problems fever or sore throat redness, blistering, peeling or loosening of the skin, including inside the mouth trouble passing urine or change in the amount of urine unusual bleeding or bruising unusually weak or tired yellowing of the eyes or skin Side effects that usually do not require medical attention (report to your doctor or health rn care transition if they continue or are bothersome): headache nausea, stomach upset What may interact with this medicine? alcohol imatinib isoniazid other medicines with acetaminophen What if I miss a dose? If you miss a dose, take it as soon as you can. If it is almost time for your next dose, take only that dose. Do not take double or extra doses. Where should I keep my medicine? Keep out of reach of children. Store at room temperature between 20 and 25 degrees C (68 and 77 degrees F). Protect from moisture and heat. Throw away any unused medicine after the expiration date. What should I tell my health care provider before I take this medicine? They need to know if you have any of these conditions: if you frequently drink alcohol containing drinks liver disease an unusual or allergic reaction to acetaminophen, other medicines, foods, dyes or preservatives or trying to get breast-feeding What should I watch for while using this medicine? Tell your doctor or health rn care transition if the pain lasts more than 10 days (5 days for children), if it gets worse, or if there is a new or different kind of pain. Also, check with your doctor if a fever lasts for more than 3 days. Do not take other medicines that contain acetaminophen with this medicine. Always read labels carefully. If you have questions, ask your doctor or pharmacist. If you take too much acetaminophen get medical help right away. Too much acetaminophen can be very dangerous and cause liver damage. Even if you do not have symptoms, it is important to get help right away. Ibuprofen Oral tablet What is this medicine? IBUPROFEN (eye BYOO proe fen) is a non-steroidal anti-inflammatory drug (NSAID). It is used for dental pain, fever, headaches or migraines, osteoarthritis, rheumatoid arthritis, or painful monthly periods. It can also relieve minor aches and pains caused by a cold, flu, or sore throat. How should I use this medicine? Take this medicine by mouth with a glass of water. Follow the directions on the prescription label. Take this medicine with food if your stomach gets upset. Try to not lie down for at least 10 minutes after you take the medicine. Take your medicine at regular intervals. Do not take your medicine more often than directed. A special MedGuide will be given to you by the pharmacist with each prescription and refill. Be sure to read this information carefully each time. Talk to your director of finance regarding the use of this medicine in children. Special care may be needed. What side effects may I notice from receiving this medicine? Side effects that you should report to your doctor or health rn care transition as soon as possible: allergic reactions like skin rash, itching or hives, swelling of the face, lips, or tongue black or bloody stools, blood in the urine or in vomit breathing problems changes in vision chest pain general ill feeling or flu-like symptoms nausea or vomiting redness, blistering, peeling or loosening of the skin, including inside the mouth slurred speech or weakness on one side of the body stomach pain unexplained weight gain or swelling unusually weak or tired yellowing of eyes or skin Side effects that usually do not require medical attention (report to your doctor or health rn care transition if they continue or are bothersome): constipation or diarrhea dizziness gas or heartburn stomach upset What may interact with this medicine? Do not take this medicine with any of the following medications: cidofovir ketorolac methotrexate pemetrexed This medicine may also interact with the following medications: alcohol aspirin diuretics lithium other drugs for inflammation like prednisone warfarin What if I miss a dose? If you miss a dose, take it as soon as you can. If it is almost time for your next dose, take only that dose. Do not take double or extra doses. Where should I keep my medicine? Keep out of the reach of children. Store at room temperature between 15 and 30 degrees C (59 and 86 degrees F). Keep container tightly closed. Throw away any unused medicine after the expiration date. What should I tell my health care provider before I take this medicine? They need to know if you have any of these conditions: asthma cigarette smoker drink more than 3 alcohol containing drinks a day heart disease or circulation problems such as heart failure or leg edema (fluid retention) high blood pressure kidney disease liver disease stomach bleeding or ulcers an unusual or allergic reaction to ibuprofen, aspirin, other NSAIDS, other medicines, foods, dyes, or preservatives or trying to get breast-feeding What should I watch for while using this medicine? Tell your doctor or healthcare professional if your symptoms do not start to get better or if they get worse. This medicine does not prevent heart attack or stroke. In fact, this medicine may increase the chance of a heart attack or stroke. The chance may increase with longer use of this medicine and in people who have heart disease. If you take aspirin to prevent heart attack or stroke, talk with your doctor or health rn care transition. Do not take other medicines that contain aspirin, ibuprofen, or naproxen with this medicine. Side effects such as stomach upset, nausea, or ulcers may be more likely to occur. Many medicines available without a prescription should not be taken with this medicine. This medicine can cause ulcers and bleeding in the stomach and intestines at any time during treatment. Ulcers and bleeding can happen without warning symptoms and can cause . To reduce your risk, do not smoke cigarettes or drink alcohol while you are taking this medicine. You may get drowsy or dizzy. Do not drive, use machinery, or do anything that needs mental alertness until you know how this medicine affects you. Do not stand or sit up quickly, especially if you are an older patient. This reduces the risk of dizzy or fainting spells. This medicine can cause you to bleed more easily. Try to avoid damage to your teeth and gums when you brush or floss your teeth. You have been given the following additional information: Abscess, Incision And Drainage Dressing Change Hydrocodone Bitartrate, Acetaminophen Oral tablet Sulfamethoxazole, Trimethoprim Oral tablet Cephalexin Monohydrate Oral tablet Acetaminophen Oral tablet Ibuprofen Oral tablet Do not work for three days. (Electronically signed by Ravi Gibson DO 02/26/2017 22:09)
== END 2017-02-26 19:40 | disposition home or self-care (01) ==
LOC: ED SRH 18:45
DX: L02.612 Cutaneous abscess of left foot (principal)

== ENCOUNTER 2017-03-02 20:48 | Emergency (ER) | payer OTHER ==
--- NOTE | 2017-03-02 21:22 | ED CLINICAL REPORT ---
Clinical Report - Physicians/Mid Levels [facility] [address] [place] [address] 03/02/2017 20:50 Patient: VANE MAK Time Seen: 21:13; initial patient contact. Arrived- By private vehicle. Historian- patient. HISTORY OF PRESENT ILLNESS Chief Complaint: WOUND RECHECK. Treated in emergency department five days ago. Previous emergency department treatment: Incision and Drainage of abscess and prescription antibiotic given. (Previous treatment: Previously seen in this ED five days ago. Incision and drainage of abscess performed. Antibiotic given in ED. Prescription given. (bactrim and keflex).). REVIEW OF SYSTEMS No fever, numbness or weakness. All systems otherwise negative, except as recorded above. PAST HISTORY See nurses notes. Tetanus immunization status is up-to-date. Problems: I And D. Abscess. Chronic Back Pain. Medications: Keflex 500mg 4 x day. Bactrim DS Oral 1 tablet, 2x a day. Allergies: None. SOCIAL HISTORY Smoker- current status unknown (cigarette). Alcohol use. No drug use. ADDITIONAL NOTES The nursing notes have been reviewed with agreement regarding the chief complaint, HPI, ROS, PMH and patient medications and allergies. PHYSICAL EXAM Vital Signs: 03/02/2017 20:58 BP: 118/72. HR: 78. RR: 20. O2 saturation: 100%. Temp: 98.4 F. Pain level now: 3/10. Have been reviewed. Appearance: Alert. Oriented X3. No acute distress. Skin: Small area of erythema with tenderness to right foot. Healing wound. Healing abscess. Slight purulent drainage present. Extremities: No lower extremity edema. PROGRESS AND PROCEDURES Course of Care: Patient is stable. CLINICAL IMPRESSION Wound check. INSTRUCTIONS Apply heat for 10 minutes four times a day for two days as needed and until better. No restrictions to activity. (finish your . wear shoes that don't rub on the area). Your Current Medications: CONTINUE TAKING THE FOLLOWING MEDICATIONS: Bactrim DS Oral : 1 tablet 2x a day. Keflex 500mg 4 x day*. Follow-up: Follow up with your doctor Friday if not better. Understanding of the discharge instructions verbalized by patient and family. (Electronically signed by Beatrice Nazario PA-C 03/02/2017 23:05)
--- NOTE | 2017-03-02 21:22 | ED NURSING NOTES ---
Clinical Report - Nurses [facility] [address] [place] [address] 03/02/2017 20:50 [id number] Triage time 20:58. Acuity: LEVEL 3. Chief Complaint: RECHECK OF WOUND. Alert. No acute distress. --21:03 Dorothea Reeves R.N. 20:58 03/02/17. BP: 118/72. HR: 78. RR: 20. O2 saturation: 100%. Temp: 98.4 F. Pain level now: 01/17. --21:03 Dorothea Reeves R.N. Weight: 78 kg stated. Height/Length: 68 inches Per Patient. BMI: 26.2. --21:02 Dorothea Reeves R.N. Medications Bactrim DS Oral 1 tablet, 2x a day. --20:59 Dorothea Reeves R.N. Keflex 500mg 4 x day. --20:59 Dorothea Reeves R.N. Medication/allergy information source: the patient. --21:03 Dorothea Reeves R.N. Allergies None. --21:00 Dorothea Reeves R.N. History Arrived by private vehicle. Historian: patient. Accompanied by friend. No primary care physician. Location: right foot. He has experienced pain that is mild in severity. Has had no redness, swelling or drainage from wound. Previous treatment: Previously seen in this ED five days ago. Incision and drainage of abscess performed. Antibiotic given in ED. Prescription given. (bactrim and keflex). PAST MEDICAL HX: Tetanus status: up-to-date. SOCIAL HX: Smoker- current status unknown. No alcohol use or drug use. FALL RISK ASSESSMENT: Fall risk assessment completed. No fall risk identified. NUTRITIONAL RISK ASSESSMENT: The nutritional risk assessment revealed no deficiencies. FUNCTIONAL ASSESSMENT: Functional assessment: no impairments noted. LEARNING NEEDS ASSESSMENT: The learning needs assessment revealed no barriers. SKIN INTEGRITY ASSESSMENT: Skin integrity risk assessment completed. No skin integrity risk identified. --21:03 Dorothea Reeves R.N. PROBLEMS: I And D. Abscess. Chronic Back Pain. Lumbar Strain. --21:00 Dorothea Reeves R.N. Interventions ID band on patient. --21:03 Dorothea Reeves R.N. PHYSICAL ASSESSMENT Ambulatory to room. GENERAL / NEURO / PSYCH: Alert. Oriented X 4. Patient's nutrition appears within normal limits. Appears anxious. EXTREMITIES: Sensation intact in extremities. ROM of extremities within normal limits. SKIN: Skin is warm and dry. Healing wound. No signs or symptoms of infection. --21:03 Dorothea Reeves R.N. NURSING PROGRESS NOTES Extremity elevated. Two patient identifiers checked. Call light placed in reach. Side rails up x 1. Bed placed in lowest position. Brakes of bed on. Patient ready for evaluation. --21:03 Dorothea Reeves R.N. DISPOSITION / DISCHARGE Condition at departure: improved. No learning barriers present. Discharge instructions provided and reviewed with the patient. Reviewed wound care instructions. Patient verbalized understanding. Written instructions provided in Occitan. The patient was discharged home and accompanied by hand sewer. He left the Emergency Department via private vehicle. Creative Developer driving. Medication list reviewed and validated. --21:39 Dorothea Reeves R.N. 20:58 03/02/17. BP: 118/72. HR: 78. RR: 20. O2 saturation: 100%. Temp: 98.4 F. Pain level now: 01/17. --21:39 Dorothea Reeves R.N. Locked/Released at 03/02/2017 21:40 by Dorothea Reeves R.N.
--- NOTE | 2017-03-02 21:22 | ED NURSING NOTES ---
Clinical Report - Nurses [facility] [address] [place] [address] 03/02/2017 20:50 [id number] Triage time 20:58. Acuity: LEVEL 3. Chief Complaint: RECHECK OF WOUND. Alert. No acute distress. --21:03 Dorothea Reeves R.N. 20:58 03/02/17. BP: 118/72. HR: 78. RR: 20. O2 saturation: 100%. Temp: 98.4 F. Pain level now: 01/17. --21:03 Dorothea Reeves R.N. Weight: 78 kg stated. Height/Length: 68 inches Per Patient. BMI: 26.2. --21:02 Dorothea Reeves R.N. Medications Bactrim DS Oral 1 tablet, 2x a day. --20:59 Dorothea Reeves R.N. Keflex 500mg 4 x day. --20:59 Dorothea Reeves R.N. Medication/allergy information source: the patient. --21:03 Dorothea Reeves R.N. Allergies None. --21:00 Dorothea Reeves R.N. History Arrived by private vehicle. Historian: patient. Accompanied by friend. No primary care physician. Location: right foot. He has experienced pain that is mild in severity. Has had no redness, swelling or drainage from wound. Previous treatment: Previously seen in this ED five days ago. Incision and drainage of abscess performed. Antibiotic given in ED. Prescription given. (bactrim and keflex). PAST MEDICAL HX: Tetanus status: up-to-date. SOCIAL HX: Smoker- current status unknown. No alcohol use or drug use. FALL RISK ASSESSMENT: Fall risk assessment completed. No fall risk identified. NUTRITIONAL RISK ASSESSMENT: The nutritional risk assessment revealed no deficiencies. FUNCTIONAL ASSESSMENT: Functional assessment: no impairments noted. LEARNING NEEDS ASSESSMENT: The learning needs assessment revealed no barriers. SKIN INTEGRITY ASSESSMENT: Skin integrity risk assessment completed. No skin integrity risk identified. --21:03 Dorothea Reeves R.N. PROBLEMS: I And D. Abscess. Chronic Back Pain. Lumbar Strain. --21:00 Dorothea Reeves R.N. Interventions ID band on patient. --21:03 Dorothea Reeves R.N. PHYSICAL ASSESSMENT Ambulatory to room. GENERAL / NEURO / PSYCH: Alert. Oriented X 4. Patient's nutrition appears within normal limits. Appears anxious. EXTREMITIES: Sensation intact in extremities. ROM of extremities within normal limits. SKIN: Skin is warm and dry. Healing wound. No signs or symptoms of infection. --21:03 Dorothea Reeves R.N. NURSING PROGRESS NOTES Extremity elevated. Two patient identifiers checked. Call light placed in reach. Side rails up x 1. Bed placed in lowest position. Brakes of bed on. Patient ready for evaluation. --21:03 Dorothea Reeves R.N. DISPOSITION / DISCHARGE Condition at departure: improved. No learning barriers present. Discharge instructions provided and reviewed with the patient. Reviewed wound care instructions. Patient verbalized understanding. Written instructions provided in Kyrgyz. The patient was discharged home and accompanied by otter trawler boatswain. He left the Emergency Department via private vehicle. Press Machine Feeder driving. Medication list reviewed and validated. --21:39 Dorothea Reeves R.N. 20:58 03/02/17. BP: 118/72. HR: 78. RR: 20. O2 saturation: 100%. Temp: 98.4 F. Pain level now: 01/17. --21:39 Dorothea Reeves R.N. Locked/Released at 03/02/2017 21:40 by Dorothea Reeves R.N.
--- NOTE | 2017-03-02 21:22 | ED CLINICAL REPORT ---
Clinical Report - Physicians/Mid Levels [facility] [address] [place] [address] 03/02/2017 20:50 Patient: VANE MAK Time Seen: 21:13; initial patient contact. Arrived- By private vehicle. Historian- patient. HISTORY OF PRESENT ILLNESS Chief Complaint: WOUND RECHECK. Treated in emergency department five days ago. Previous emergency department treatment: Incision and Drainage of abscess and prescription antibiotic given. (Previous treatment: Previously seen in this ED five days ago. Incision and drainage of abscess performed. Antibiotic given in ED. Prescription given. (bactrim and keflex).). REVIEW OF SYSTEMS No fever, numbness or weakness. All systems otherwise negative, except as recorded above. PAST HISTORY See nurses notes. Tetanus immunization status is up-to-date. Problems: I And D. Abscess. Chronic Back Pain. Medications: Keflex 500mg 4 x day. Bactrim DS Oral 1 tablet, 2x a day. Allergies: None. SOCIAL HISTORY Smoker- current status unknown (cigarette). Alcohol use. No drug use. ADDITIONAL NOTES The nursing notes have been reviewed with agreement regarding the chief complaint, HPI, ROS, PMH and patient medications and allergies. PHYSICAL EXAM Vital Signs: 03/02/2017 20:58 BP: 118/72. HR: 78. RR: 20. O2 saturation: 100%. Temp: 98.4 F. Pain level now: 3/10. Have been reviewed. Appearance: Alert. Oriented X3. No acute distress. Skin: Small area of erythema with tenderness to right foot. Healing wound. Healing abscess. Slight purulent drainage present. Extremities: No lower extremity edema. PROGRESS AND PROCEDURES Course of Care: Patient is stable. CLINICAL IMPRESSION Wound check. INSTRUCTIONS Apply heat for 10 minutes four times a day for two days as needed and until better. No restrictions to activity. (finish your . wear shoes that don't rub on the area). Your Current Medications: CONTINUE TAKING THE FOLLOWING MEDICATIONS: Bactrim DS Oral : 1 tablet 2x a day. Keflex 500mg 4 x day*. Follow-up: Follow up with your doctor Friday if not better. Understanding of the discharge instructions verbalized by patient and family. (Electronically signed by Beatrice Nazario PA-C 03/02/2017 23:05)
--- NOTE | 2017-03-02 23:05 | ED MAR SUMMARY ---
..... Medication Administration Record [facility] [address] [place], [place] [id number] Patient: VANE MAK Visit ID: [id number] 31y, M Weight: 78.0 kg Height/Length: 68 in BMI: 26.2 ALLERGIES: None
--- NOTE | 2017-03-02 23:05 | ED MAR SUMMARY ---
..... Medication Administration Record [facility] [address] [place], [place] [id number] Patient: VANE MAK Visit ID: [id number] 31y, M Weight: 78.0 kg Height/Length: 68 in BMI: 26.2 ALLERGIES: None
--- NOTE | 2017-03-02 23:05 | ED MED RECONCILIATION SUMMARY ---
Patient: VANE MAK Medication Reconciliation Report [facility] VisitID: [id number] [address] [place] [address] 31y, M Registration Date/Time: 03/02/2017 Weight: 78.0 kg Height/Length: 68 in. BMI: 26.2 ALLERGIES: None The patient's Home Medications are listed below: CONTINUE TAKING THE FOLLOWING MEDICATIONS: Bactrim DS Oral 1 tablet, 2x a day Keflex 500mg 4 x day The source(s) of the original Home Medication information: patient The following Medications were given to the patient in the Emergency Department: None. The following Medications were prescribed to the patient: None.
--- NOTE | 2017-03-02 23:05 | ED DISCHARGE INSTRUCTIONS ---
Patient: VANE MAK General Instructions [facility] VisitID: [id number] [address] [place] [address] 31y, M Registration Date/Time: 03/02/2017 Wound check. INSTRUCTIONS Apply heat for 10 minutes four times a day for two days as needed and until better. No restrictions to activity. (finish your . wear shoes that don't rub on the area). Your Current Medications: CONTINUE TAKING THE FOLLOWING MEDICATIONS: Bactrim DS Oral : 1 tablet 2x a day. Keflex 500mg 4 x day*. Follow-up: Follow up with your doctor Friday if not better. Understanding of the discharge instructions verbalized by patient and family. No restrictions to activity. (Electronically signed by Beatrice Nazario PA-C 03/02/2017 23:05)
--- NOTE | 2017-03-02 23:05 | ED DISCHARGE INSTRUCTIONS ---
Patient: VANE MAK General Instructions [facility] VisitID: [id number] [address] [place] [address] 31y, M Registration Date/Time: 03/02/2017 Wound check. INSTRUCTIONS Apply heat for 10 minutes four times a day for two days as needed and until better. No restrictions to activity. (finish your . wear shoes that don't rub on the area). Your Current Medications: CONTINUE TAKING THE FOLLOWING MEDICATIONS: Bactrim DS Oral : 1 tablet 2x a day. Keflex 500mg 4 x day*. Follow-up: Follow up with your doctor Friday if not better. Understanding of the discharge instructions verbalized by patient and family. No restrictions to activity. (Electronically signed by Beatrice Nazario PA-C 03/02/2017 23:05)
--- NOTE | 2017-03-02 23:05 | ED MED RECONCILIATION SUMMARY ---
Patient: VANE MAK Medication Reconciliation Report [facility] VisitID: [id number] [address] [place] [address] 31y, M Registration Date/Time: 03/02/2017 Weight: 78.0 kg Height/Length: 68 in. BMI: 26.2 ALLERGIES: None The patient's Home Medications are listed below: CONTINUE TAKING THE FOLLOWING MEDICATIONS: Bactrim DS Oral 1 tablet, 2x a day Keflex 500mg 4 x day The source(s) of the original Home Medication information: patient The following Medications were given to the patient in the Emergency Department: None. The following Medications were prescribed to the patient: None.
== END 2017-03-02 21:28 | disposition home or self-care (01) ==
LOC: ED SRH 20:48
DX: Z48.01 Encounter for change or removal of surgical wound dressing (principal)